=== PATIENT | female | born 1990 | race African-American/Black ===

== ENCOUNTER 2023-11-07 08:41 | Emergency (ER) | payer OTHER, SELFPAY ==
--- NOTE | ~2023-11-07 | XR_ITS ---
LUMBAR SPINE INDICATION: Low back pain TECHNIQUE: 5 views lumbar spine COMPARISON: None FINDINGS: No fracture, subluxation or dislocation. No evidence for spondylolysis or spondylolisthesi s. Vertebral bodies and disk spaces are preserved. There is sacralization of L5. Pedicles intact. IMPRESSION: 1: No acute abnormality of the lumbar spine identified. Reviewed, dictated and finalized at location A. [facility]
[2023-11-07 09:20] VITALS: BP 140/81; PULSE 78; RESP 20; TEMP 37; O2SAT 99
--- NOTE | 2023-11-07 09:53 | ED.BACK ---
HPI - Back Pain/Injury General Chief Complaint: Back Pain/Injury Stated Complaint: Back Pain Time Seen by Provider: 11/07/23 09:53 Source: patient Mode of arrival: ambulatory Limitations: no limitations History of Present Illness HPI Narrative: 32-year-old female presented for complaint of low back pain and right upper arm pain after injury at work last night. 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 Then the resident grabbed her right upper arm before being pulled off of her by other staff. Pt has not taken anything for symptoms. Denies pain radiating into the hips or legs, numbness, tingling, weakness of the lower extremities, or change in gait, saddle paresthesia or loss of bowel or bladder. Related Data Allergies Allergy/AdvReac Type Severity Reaction Status Date / Time No Known Allergies Allergy Verified 11/07/23 09:24 Review of Systems Review of Systems: CONSTITUTIONAL: Denies body aches, fever, chills EYES: Denies visual changes CARDIOVASCULAR: Denies chest pain, palpitations, or edema. RESPIRATORY: Denies cough or dyspnea. GASTROINTESTINAL: Denies abdominal pain, nausea, vomiting, or diarrhea. SKIN: Denies rash, itching, or wounds. MUSCULOSKELETAL: reports back pain, right upper arm NEUROLOGIC: Denies headache, numbness, tingling, or weakness. All systems reviewed & are unremarkable except as noted in HPI and below PMFSH Past Medical History Medical History (Updated 11/07/23 @ 10:35 by Candida Tinoco, DIANE) No pertinent past medical history Comments At time of signature, I have reviewed and agree with nursing past medical, surgical, social and family history unless otherwise noted. Please see nursing chart for further information. There is no relevant family history pertinent to the presenting complaint Exam Narrative: GENERAL: Well-appearing, and in no acute distress. HEAD: Normocephalic, atraumatic. EYES: conjunctivae clear NECK: Supple. full ROM CHEST: Speaks in full sentences. No respiratory distress. HEART: Regular rate and rhythm. Normal and equal peripheral pulses. MUSC: Reports tenderness to mid lumbar spine; no bruising or erythema. no step off. BLEs with normal strength and sensation, normal range of motion. No open wounds, or obvious deformity; alignment normal, pulse palpable and equal bilaterally, skin warm, dry, pink. Capillary refill less than 3 seconds. Gait steady. Right upper arm tenderness, light bruising to lateral aspect; full ROM to RUE. SKIN: Warm, dry, no rash. NEURO: Alert and oriented x3. Back/Spine/Pelvis: Back/spine/pelvis image: 1. area of low back tenderness Extrem: Shoulder/upper arm images: 1. area of tenderness, light bruising Course Course Emergency Course: Patient is aware of diagnosis, understands and agrees to treatment plan. Anticipatory guidance given. Patient agrees to follow-up as directed and is aware of reasons to seek care at the emergency department. Portions of this record may have been created with voice recognition software Level of Care: Express Care Visit Vital Signs Vital signs: Vital Signs Temperature 98.6 F 11/07/23 09:20 Pulse Rate 78 11/07/23 09:20 Respiratory Rate 20 11/07/23 09:20 Blood Pressure 140/81 11/07/23 09:20 Pulse Oximetry 99 11/07/23 09:20 Oxygen Delivery Room Air 11/07/23 09:20 Temperature 98.6 F 11/07/23 09:20 Pulse Rate 78 11/07/23 09:20 Respiratory Rate 20 11/07/23 09:20 Blood Pressure 140/81 11/07/23 09:20 Pulse Oximetry 99 11/07/23 09:20 Oxygen Delivery Room Air 11/07/23 09:20 Reviewed MDM - Back Pain/Injury MDM Narrative Medical decision making narrative: Xray reviewed with pt. Advised supportive measures and s/s to go to the ER. Pt is stable and appropriate for outpt treatment and follow up with pcp. Differential Diagnosis Differential diagnosis: Roz
== END 2023-11-07 10:39 | disposition home or self-care (01) ==
PROVIDERS: Emergency Provider Nurse Practitioner Family
DX: M54.50 Low back pain, unspecified (principal)
CPT/HCPCS: 72110; 99213; G0463